=== PATIENT | male | born 1960 | race Caucasian/White ===

== ENCOUNTER 2017-04-27 10:05 | Inpatient (IN) | payer BC, OTHER ==
[~2017-04-27] VITALS: Ht 177.8 cm; Wt 124.7 kg
[2017-04-27] MEDS ORDERED: ACETAMINOPHEN 325 MG TABLET PO PRN (12:30)
[2017-04-27] MEDS ORDERED: hydrALAZINE HCL 50 MG TABLET PO PRN (12:30)
[2017-04-27] MEDS ORDERED: LORAZEPAM 2 MG/1 ML VIAL IM PRN (12:30)
[2017-04-27] MEDS ORDERED: IBUPROFEN 600 MG TABLET PO PRN (12:30)
[2017-04-27] MEDS ORDERED: THIAMINE HCL 200 MG/2 ML VIAL IM ONE (12:30)
[2017-04-27] MEDS ORDERED: ONDANSETRON 4 MG/2 ML VIAL IM PRN (12:30)
[2017-04-27] MEDS ORDERED: LOPERAMIDE HCL 2 MG CAPSULE PO PRN ×2 (12:30)
[2017-04-27] MEDS ORDERED: LORAZEPAM 1 MG TABLET PO PRN ×2 (12:30)
[2017-04-27] MEDS ORDERED: ONDANSETRON ODT 4 MG TAB.RAPDIS SL PRN (12:30)
[2017-04-27] MEDS ORDERED: diphenhydrAMINE 50 MG CAPSULE PO PRN (12:30)
[2017-04-27] MEDS ORDERED: MAG HYDROX/AL HYDROX/SIMETH 30 ML LIQUID UDC PO PRN (12:30)
[2017-04-27] MEDS ORDERED: MIRALAX 17 GM POWD.PACK PO PRN (12:30)
[2017-04-27 13:05] LABS: BASOPHILS # (AUTO) 0.1 K/uL (0.0-8.0); BASOPHILS % (AUTO) 0.6 % (0.0-2.0); EOSINOPHILS % (AUTO) 0.4 % (0.0-7.0); HEMATOCRIT 53.1 % (40-50); HEMOGLOBIN 17.8 G/DL (14.0-18.0); LYMPHOCYTES # (AUTO) 2.6 K/UL (0.8-4.8); LYMPHOCYTES % (AUTO) 30.5 % (20.5-51.5); MEAN CORPUSCULAR HEMOGLOBIN 33.2 UUG (27.0-31.0); MEAN CORPUSCULAR HGB CONC 33 g/dL (32.0-37.0); MEAN CORPUSCULAR VOLUME 99.2 FL (82.0-92.0); MONOCYTES # (AUTO) 0.6 K/UL (0.1-1.30); MONOCYTES % (AUTO) 7.1 % (0.0-11.0); NEUTROPHILS # (AUTO) 5.3 K/UL (1.8-8.9); NEUTROPHILS % (AUTO) 61.4 % (38.5-71.5); PLATELET COUNT (AUTO) 195 K/UL (150-450); RED BLOOD CELL COUNT(AUTO) 5.36 MIL/UL (4.7-6.1); WHITE BLOOD COUNT (AUTO) 8.6 K/UL (4.0-11.2)
[2017-04-27 13:15] LABS: ALANINE AMINOTRANSFERASE 45 U/L (16-63); ALKALINE PHOSPHATASE 112 U/L (50-136); AMYLASE 39 U/L (25-115); ASPARTATE AMINOTRANSFERASE 39 U/L (15-37); BILIRUBIN,TOTAL 0.6 mg/dL (0.2-1.0); CARBON DIOXIDE 28 mmol/L (21-32); CHLORIDE 102 mmol/L (98-107); CREATININE 0.9 mg/dL (0.6-1.3); GLUCOSE 152 mg/dL (74-106); MAGNESIUM 1.7 mg/dL (1.8-2.4); POTASSIUM 3.8 mmol/L (3.5-5.1); TOTAL PROTEIN, SERUM 8.8 g/dL (6.4-8.2); UREA NITROGEN, BLOOD 7 mg/dL (7-18)
[2017-04-27] MEDS ORDERED: ATEN50TA PO (13:18)
[2017-04-27 13:27] LABS: ETHANOL < 3 MG/DL (0-0)
--- NOTE | 2017-04-27 13:30 | NUR ---
Admission Note VS: BP: 153/76 HR: 99, SpO2: 97% RA, RR: 16, Temp: 97.6 Pain:0 Height:5'10" Weight: 275LB Allergies: NKA Pt is a 57 y/o male admitted to [facility] on 04/27/17 at 1330. Pt has been admitted for alcohol dependence under the care of Dr Taylor. Pt denies suicidal and homicidal ideations at this time. Pt denies Chest Pain and SOB. Pt brought Atenolol 50mg with him. Pt reports taking it nightly for HTN. PT reports living at home with his and kids. Upon assessment pt' presents with intact skin integrity. PT denies history of falls. CIWA 1 upon admission for mild anxiety. A/Ox4 and able to answer questions necessary for the admission process. Pt denies previous hospitalizations in the last 3 months. Reports being hospitalized this year for insect bites. Pt does not have a PCP. Full Code. VS WNL, Regular Diet. Pt reports his brother being an alcoholic. Pt denies hx of seizures. Pt denies any history of suicide attempts. Breathing is even and unlabored, SpO2 is 97% on RA. Pt ambulates with steady gait. Pt reports regular daily BM. LBM on 04/27/17. Pt reports that he doesn't smoke. 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 Dr. Taylor has been notified, pt has been placed on a 5 day Ativan taper set to begin at 1500, 04/27/17. Urine has been collected for UDS and Blood draw has been completed. All needs have been met. Pt has been oriented to the room and the unit. All safety measures in place per hospital policy. Bed in lowest position, side rails up x2 and padded, call-light within reach. Will continue to monitor. Substance Abuse: Alcohol: 300-500ml orally daily for 10months. Last Drink: 500ml on 04/26/17 evening
[2017-04-27 13:43] LABS: *AMPHETAMINE, URINE NEGATIVE (NEGATIVE); *BARBITURATE, URINE NEGATIVE (NEGATIVE); *CANNABINOID, URINE NEGATIVE (NEGATIVE); *COCCAINE, URINE NEGATIVE (NEGATIVE); *OPIATE, URINE NEGATIVE (NEGATIVE); *PHENCYCLIDINE SCREEN,URINE NEGATIVE (NEGATIVE)
[2017-04-27] MEDS: LORAZEPAM 1 MG TABLET PO SCH ×2 (15:00→21:00)
--- NOTE | 2017-04-27 15:00 | NUR ---
Therapist prompted client about group times. Client stated he will start attending groups this afternoon.
--- NOTE | 2017-04-27 15:14 | NUR ---
Medication Refused Pt is refusing Ativan 2mg, educated pt on dangers of withdrawal caused S/E and seizures. Addendum: 04/27/17 at 1628 by LUZ MARIA ORTEGA RN Pt states, "I'm not withdrawing right now, I will take the 2100 dose". Pt presents with RUFINO 1 at this time.
[2017-04-27 16:00] VITALS: BP 138/69
--- NOTE | 2017-04-27 19:27 | NUR ---
End of Shift Endorsement given to nightshift nurse. Pt is a 57 y/o male admitted to [facility] on 04/27/17 at 1330. Pt has been admitted for alcohol dependence under the care of Dr Taylor. Pt denies suicidal and homicidal ideations at this time. Pt denies Chest Pain and SOB. Pt brought Atenolol 50mg with him. Pt reports taking it nightly for HTN. PT reports living at home with his and kids. Upon assessment pt' presents with intact skin integrity. PT denies history of falls. CIWA 1 upon admission for mild anxiety. A/Ox4 and able to answer questions necessary for the admission process. Pt denies previous hospitalizations in the last 3 months. Reports being hospitalized this year for insect bites. Pt does not have a PCP. Full Code. VS WNL, Regular Diet. Pt reports his brother being an alcoholic. Pt denies hx of seizures. Pt denies any history of suicide attempts. Breathing is even and unlabored, SpO2 is 97% on RA. Pt ambulates with steady gait. Pt reports regular daily BM. LBM on 04/27/17. Pt reports that he doesn't smoke. 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 Dr. Taylor has been notified, pt has been placed on a 5 day Ativan taper set to begin at 1500, 04/27/17. Urine has been collected for UDS and Blood draw has been completed. All needs have been met. Pt has been oriented to the room and the unit. All safety measures in place per hospital policy. Bed in lowest position, side rails up x2 and padded, call-light within reach. Will continue to monitor. Substance Abuse: Alcohol: 300-500ml orally daily for 10months. Last Drink: 500ml on 04/26/17 evening
--- NOTE | 2017-04-27 19:28 | NUR ---
Start of shift note Received report from day shift nurse. Pt is 57 yo male, A+Ox4, presenting to [facility] for ETOH dependence. Pt has Allergies to ibuprofen, is on Full code status, and on Regular diet. Pt is on Fall and Seizure precautions. Pt has HX of HTN. Pt is on 5 day Ativan taper, tolerated well. No s/s of distress noted at this time. Respirations even and unlabored. Will continue to monitor.
[2017-04-27 20:03] VITALS: BP 154/83
[2017-04-27] MEDS ORDERED: MAGNESIUM OXIDE 400 MG TABLET PO ONE (21:00)
--- NOTE | 2017-04-27 22:50 | NUR ---
PRN Benadryl Pt c/o inability to sleep and requested for PRN Benadryl. Medication given and tolerated well. Will reassess within 1 HR. Will continue to monitor.
--- NOTE | 2017-04-27 23:45 | NUR ---
PRN Benadryl Reassessment Medication effective. Pt is resting well in bed. No s/s of ASE/distress noted at this time. Respirations even and unlabored. Will continue to monitor.
[2017-04-28] MEDS ORDERED: ATENOLOL 50 MG TABLET PO ONE
[2017-04-28] MEDS ORDERED: ATENOLOL 50 MG TABLET ONE (00:10)
[2017-04-28 00:15] VITALS: BP 116/68
[2017-04-28 04:13] VITALS: BP 119/71
--- NOTE | 2017-04-28 07:00 | NUR ---
End of shift note Pt is 57 yo male, A+Ox4, presenting to [facility] for ETOH dependence. Pt has Allergies to ibuprofen, is on Full code status, and on Regular diet. Pt is on Fall and Seizure precautions. Pt has HX of HTN. Pt is on 5 day Ativan taper, tolerated well. Pt was given PRN Benadryl @2250. Pt slept for a total of 7 HRS. Last CIWA: 2 @0400. No s/s of distress noted at this time. Respirations even and unlabored. Will endorse to day shift nurse.
--- NOTE | 2017-04-28 07:45 | NUR ---
START OF SHIFT NOTE Received report from night nurse, 57 year old male admitted for ETOH dependence. Patient has PMH of HTN, sleep apnea. Patient cont on 5 days Ativan taper. Per endorsement pt was given PRN Benadryl effective per night nurse. Patient slept for 7 hours, Last CIWA was-2. Patient received awake,alert and oriented x4, Educated patient regarding plan of care for the day and medication regimen with good verbal understanding. Safety measures in place. call light with in reach, will continue to monitor.
[2017-04-28 08:00] VITALS: BP 123/77
[2017-04-28 08:07] LABS: HEPATITIS B SURFACE AG Negative (Negative)
[2017-04-28] MEDS: FOLIC ACID 1 MG TABLET PO SCH (08:40)
[2017-04-28] MEDS: MULTIVITAMINS,THERAPEUTIC TABLET PO SCH (08:40)
[2017-04-28] MEDS: THIAMINE HCL 100 MG TABLET PO SCH (08:40)
--- NOTE | 2017-04-28 08:43 | NUR ---
ATIVAN REFUSED Patient refused his scheduled Ativan 1mg Po offered x3 risk and benefits explained pt verbalized understanding still refused, CIWA score noted 4. notified. All safety measures in place. Will cont to monitor.
[2017-04-28] MEDS ORDERED: TUBERCULIN,PURIF.PROT.DERIV. 5 TU/0.1 ML TEST ID ONE (09:00)
[2017-04-28] MEDS ORDERED: ATENOLOL 50 MG TABLET PO SCH (09:00)
[2017-04-28] MEDS ORDERED: LORAZEPAM 1 MG TABLET PO SCH ×2 (09:00→21:00)
[2017-04-28 12:00] VITALS: BP 157/85
[2017-04-28] MEDS ORDERED: LORAZEPAM 1 MG TABLET PO PRN ×2 (12:45)
[2017-04-28] MEDS: LORAZEPAM 1 MG TABLET PO SCH ×2 (15:08→21:00)
[2017-04-28 16:00] VITALS: BP 152/80
--- NOTE | 2017-04-28 19:14 | NUR ---
END OF SHIFT NOTE Patient is admitted for ETOH dependence. Patient cont on Ativan taper tolerating well. Patient refused his scheduled Ativan offered x3 risk and benefits explained MD aware. Encouraged Po fluids as tolerated. Pt's last CIWA score was 7 at 1600. Vital signs WNL. Patient attended groups and activities. Skin intact warm and dry to touch. All needs met. Safety measures in place, call light within reach. Pt endorsed to night nurse in stable condition.
--- NOTE | 2017-04-28 19:15 | NUR ---
Start of shift note Received report from day shift nurse. Pt is 57 yo male, A+Ox4, presenting to [facility] for ETOH dependence. Pt has Allergies to ibuprofen, is on Full code status, and on Regular diet. Pt is on Fall and Seizure precautions. Pt has HX of HTN. Pt is on 5 day Ativan taper, tolerated well. No s/s of distress noted at this time. Respirations even and unlabored. Will continue to monitor.
[2017-04-28 20:15] VITALS: BP 134/85
[2017-04-28] MEDS: ATENOLOL 50 MG TABLET PO SCH (21:00)
[2017-04-29 00:20] VITALS: BP 127/82
[2017-04-29 04:11] VITALS: BP 124/79
--- NOTE | 2017-04-29 06:58 | NUR ---
End of shift note Pt is 57 yo male, A+Ox4, presenting to [facility] for ETOH dependence. Pt has Allergies to ibuprofen, is on Full code status, and on Regular diet. Pt is on Fall and Seizure precautions. Pt has HX of HTN. Pt is on 5 day Ativan taper, tolerated well. Pt slept for a total of 9 HRS. Last CIWA: 3 @0400. No s/s of distress noted at this time. Respirations even and unlabored. Will endorse to day shift nurse.
--- NOTE | 2017-04-29 07:45 | NUR ---
START OF SHIFT Rcvd endorsement from ongoing nurse, client is in room, he is a/o x 4, he presents with anxious mood, flat affect, and flushed face. He reports decreased in appetite, abdominal cramps, restless legs, irritability, and fatigue. He denies any N/V/D. He denies any SI/HI. Encourage client to attend to group therapy for skill to maintain sober. Encourage client to increase PO fluid intake as tolerated to facilitate detox. Client is a 57 y/o male, admitted to [facility] for withdrawal from alcohol. He is on last of 5 day Ativan taper, tolerating well (day 3). Last CIWA 3 @ 1999. Client had an uneventful night, he slept 8 hrs. He denies a hx of withdrawal-induced seizures, Client reports allergy to Ibuprofen , he is full code, regular diet. Side rails x 2 up/padded for seizure precautions. Call light within reach.
[2017-04-29 08:00] VITALS: BP 150/80
[2017-04-29] MEDS: MULTIVITAMINS,THERAPEUTIC TABLET PO SCH (08:37)
[2017-04-29] MEDS: FOLIC ACID 1 MG TABLET PO SCH (08:37)
[2017-04-29] MEDS: THIAMINE HCL 100 MG TABLET PO SCH (08:37)
[2017-04-29] MEDS: LORAZEPAM 1 MG TABLET PO SCH ×2 (08:38→21:00)
[2017-04-29] MEDS ORDERED: LORAZEPAM 1 MG TABLET PO SCH (09:00)
--- NOTE | 2017-04-29 09:48 | NUR ---
Therapist prompted client about group times. Client stated he will attend all groups today.
[2017-04-29 12:23] VITALS: BP 144/77
[2017-04-29 16:47] VITALS: BP 145/73
--- NOTE | 2017-04-29 19:13 | NUR ---
END OF SHIFT Client is a 57 y/o male, a/o x 4, he was admitted to [facility] for withdrawal from alcohol. He is on 5 day Ativan taper, tolerating well (day 3). Last CIWA 7 @ 1600. Client continues to present with anxious mood, flat affect. He is compliant with group therapy. Client consumes 75% of meals, adequate PO fluid intake 3060mL, void x 5, stool x 2. He denies a hx of withdrawal-induced seizures, Client reports allergy to Ibuprofen , he is full code, regular diet. Side rails x 2 up/padded for seizure precautions. Call light within reach.
[2017-04-29 20:00] VITALS: BP 142/80
--- NOTE | 2017-04-29 20:00 | NUR ---
Start of Shift Patient is a 57-year old, male, admitted for ETOH Dependence. Patient placed on Ativan taper, last dose 04/29/2017 AM. Pt with history of Hypertension and Sleep Apnea, with personal CPAP at bedside. Pt on Regular Diet, is Full Code and is allergic to Ibuprofen. Pt is AAOx4 and with mild anxiety noted. Pt is ambulatory with steady gait and with no skin issues. Fall, universal and safety prec in place. Call light within reach. Latest CIWA=6. Will continue to monitor.
[2017-04-29] MEDS: ATENOLOL 50 MG TABLET PO SCH (21:43)
--- NOTE | 2017-04-29 21:45 | NUR ---
RN note Ativan taper refusal Pt refused Ativan scheduled for tonight. Educated pt the risks and benefits of continuing the taper. Dr. Taylor notified. No new orders.
[2017-04-30] VITALS: BP 135/83
--- NOTE | 2017-04-30 04:10 | NUR ---
RN note Vital Signs and CIWA assessment refusal Pt refused Vital Signs check and CIWA assessment despite explanation of risks and benefits. RR=16. No SOB noted.
--- NOTE | 2017-04-30 07:06 | NUR ---
End of Shift Patient is a 57-year old, male, admitted for ETOH Dependence. Patient placed on Ativan taper, last dose 04/29/2017 AM. Pt with history of Hypertension and Sleep Apnea, with personal CPAP at bedside. Pt on Regular Diet, is Full Code and is allergic to Ibuprofen. Pt is AAOx4 and with mild anxiety noted. Pt is ambulatory with steady gait and with no skin issues. Fall, universal and safety prec in place. Call light within reach. Latest CIWA=3, slept for 8 hours. Endorsed to AM shift nurse for continuity of care.
--- NOTE | 2017-04-30 07:45 | NUR ---
START OF SHIFT Rcvd endorsement from ongoing nurse, client is in room, he is a/o x 4, he presents with depressed mood. He reports restless legs and fatigue. He denies any N/V/D. He denies any SI/HI. Encourage client to attend to group therapy for skill to maintain sober. Encourage client to increase PO fluid intake as tolerated to facilitate detox. Client is a 57 y/o male, admitted to [facility] for withdrawal from alcohol. He is on last of 5 day Ativan taper, tolerating well (day 4). Last CIWA 3 @ 2400. Client refused Ativan 1mg PO taper, he slept 8 hrs. He denies a hx of withdrawal-induced seizures, Client reports allergy to Ibuprofen , he is full code, regular diet. Side rails x 2 up/padded for seizure precautions. Call light within reach.
[2017-04-30 08:03] VITALS: BP 144/79
[2017-04-30] MEDS: FOLIC ACID 1 MG TABLET PO SCH (08:18)
[2017-04-30] MEDS: THIAMINE HCL 100 MG TABLET PO SCH (08:18)
[2017-04-30] MEDS: MULTIVITAMINS,THERAPEUTIC TABLET PO SCH (08:18)
--- NOTE | 2017-04-30 08:41 | NUR ---
Zero induration noted on left forearm @ TB site
[2017-04-30] MEDS ORDERED: LORAZEPAM 1 MG TABLET PO SCH ×2 (09:00)
[2017-04-30 12:25] VITALS: BP 147/87
--- NOTE | 2017-04-30 12:40 | NUR ---
AMA Client stated the he was not ready and wanted to go home. Client was educated about the risks and consequences of leaving AMA, client verbalized understanding but still requested to leave. multiple staff members spoke with client without any success. VS are WNL, client denies any suicidal/homicidal ideations, skin intact, Dr. Taylor notified. Client was given a list of community resources in case he is in need of help, all belongings and medication returned to client. Client ambulated out of the unit at 1240
[2017-05-01] MEDS ORDERED: LORAZEPAM 1 MG TABLET PO SCH (09:00)
== END 2017-04-30 12:40 | disposition left against medical advice (07) | DRG 894 ==
LOC: SRC 11:46
PROVIDERS: ADMIT Internal Medicine; ATTEND Internal Medicine
PROC: HZ2ZZZZ Detoxification Services for Substance Abuse Treatment (ICD-10-PCS; principal; 2017-04-27)
PROC: HZ41ZZZ Group Counseling for Substance Abuse Treatment, Behavioral (ICD-10-PCS; principal; 2017-04-27)
PROC: HZ31ZZZ Individual Counseling for Substance Abuse Treatment, Behavioral (ICD-10-PCS; 2017-04-29)
DX: F10.230 Alcohol dependence with withdrawal, uncomplicated (principal); E88.81 Metabolic syndrome and other insulin resistance; K70.10 Alcoholic hepatitis without ascites; E83.42 Hypomagnesemia; E66.9 Obesity, unspecified; I10 Essential (primary) hypertension; Y90.0 Blood alcohol level of less than 20 mg/100 ml; Z81.1 Family history of alcohol abuse and dependence; Z80.0 Family history of malignant neoplasm of digestive organs; Z82.49 Family history of ischemic heart disease and other diseases of the circulatory system; Z68.39 Body mass index [BMI] 39.0-39.9, adult; E78.5 Hyperlipidemia, unspecified; G47.33 Obstructive sleep apnea (adult) (pediatric); F41.9 Anxiety disorder, unspecified
CPT/HCPCS: 36415; 70030-TC; 80307; 83735; 85025; 86580; 86592; 86705; 86803; 87340; 87806; A4663; G0480; J3411; Q0163

== ENCOUNTER 2018-07-13 15:42 | Inpatient (IN) | payer BC, OTHER ==
[~2018-07-13] VITALS: Ht 177.8 cm; Wt 117.9 kg
[~2018-07-13 15:42] MED LIST: ATEN50TA PO
[2018-07-13 20:00] VITALS: BP 151/87
[2018-07-13] MEDS ORDERED: LORAZEPAM 2 MG/1 ML VIAL IM PRN (20:45)
[2018-07-13] MEDS ORDERED: MAGNESIUM HYDROXIDE 30 ML LIQUID UDC PO PRN (20:45)
[2018-07-13] MEDS ORDERED: MIRALAX 17 GM POWD.PACK PO PRN (20:45)
[2018-07-13] MEDS ORDERED: DIAZEPAM 10 MG TABLET PO PRN ×2 (20:45)
[2018-07-13] MEDS ORDERED: DIAZEPAM 5 MG TABLET PO PRN (20:45)
[2018-07-13] MEDS ORDERED: ONDANSETRON ODT 4 MG TAB.RAPDIS SL PRN (20:45)
[2018-07-13] MEDS ORDERED: THIAMINE HCL 200 MG/2 ML VIAL IM ONE (20:45)
[2018-07-13] MEDS ORDERED: CLONIDINE HCL 0.1 MG TABLET PO PRN (20:45)
[2018-07-13] MEDS ORDERED: FOLIC ACID 1 MG TABLET PO SCH (20:45)
[2018-07-13] MEDS ORDERED: diphenhydrAMINE 50 MG CAPSULE PO PRN (20:45)
[2018-07-13] MEDS ORDERED: HYDROXYZINE PAMOATE 25 MG CAPSULE PO PRN (20:45)
[2018-07-13] MEDS ORDERED: MULTIVITAMINS,THERAPEUTIC TABLET PO SCH (20:45)
[2018-07-13] MEDS ORDERED: ACETAMINOPHEN 325 MG TABLET PO PRN (20:45)
[2018-07-13] MEDS ORDERED: IBUPROFEN 600 MG TABLET PO PRN (20:45)
[2018-07-13] MEDS ORDERED: LOPERAMIDE HCL 2 MG CAPSULE PO PRN ×2 (20:45)
[2018-07-13] MEDS ORDERED: MAG HYDROX/AL HYDROX/SIMETH 30 ML LIQUID UDC PO PRN (20:45)
[2018-07-13] MEDS ORDERED: THIAMINE HCL 100 MG TABLET PO SCH (20:45)
[2018-07-13] MEDS ORDERED: ONDANSETRON 4 MG/2 ML VIAL IM PRN (20:45)
[2018-07-13 21:07] LABS: *AMPHETAMINE, URINE NEGATIVE (NEGATIVE); *BARBITURATE, URINE NEGATIVE (NEGATIVE); *CANNABINOID, URINE NEGATIVE (NEGATIVE); *COCCAINE, URINE NEGATIVE (NEGATIVE); *OPIATE, URINE NEGATIVE (NEGATIVE); *PHENCYCLIDINE SCREEN,URINE NEGATIVE (NEGATIVE)
[2018-07-13 21:30] VITALS: BP 155/83
[2018-07-13 22:41] LABS: BASOPHILS # (AUTO) 0.1 K/uL (0.0-8.0); BASOPHILS % (AUTO) 0.9 % (0.0-2.0); EOSINOPHILS % (AUTO) 0.4 % (0.0-7.0); HEMOGLOBIN 17.3 g/dL (12.5-16.3); LYMPHOCYTES # (AUTO) 2.3 K/uL (20.0-40.0); MEAN CORPUSCULAR HEMOGLOBIN 35.3 uug (23.8-33.4); MEAN CORPUSCULAR HGB CONC 35 g/dL (32.5-36.3); MEAN CORPUSCULAR VOLUME 102.3 fL (73.0-96.2); MONOCYTES # (AUTO) 0.9 K/uL (2.0-10.0); MONOCYTES % (AUTO) 11.2 % (0.0-11.0); NEUTROPHILS # (AUTO) 4.6 K/uL (1.8-8.9); NEUTROPHILS % (AUTO) 58.5 % (38.5-71.5); PLATELET COUNT (AUTO) 169 K/uL (152-348); RED BLOOD CELL COUNT(AUTO) 4.89 MIL/uL (4.06-5.63); WHITE BLOOD COUNT (AUTO) 7.9 K/uL (3.6-10.2)
[2018-07-13 22:58] LABS: ALANINE AMINOTRANSFERASE 37 U/L (16-63); ALKALINE PHOSPHATASE 103 U/L (50-136); AMYLASE 34 U/L (25-115); ASPARTATE AMINOTRANSFERASE 28 U/L (15-37); BILIRUBIN,TOTAL 0.7 mg/dL (0.2-1.0); CARBON DIOXIDE 28 mmol/L (21-32); CHLORIDE 100 mmol/L (98-107); CREATININE 0.8 mg/dL (0.6-1.3); GLUCOSE 151 mg/dL (74-106); LIPASE 72 U/L (73-393); MAGNESIUM 1.7 mg/dL (1.8-2.4); POTASSIUM 3.5 mmol/L (3.5-5.1); TOTAL PROTEIN, SERUM 8.4 g/dL (6.4-8.2); UREA NITROGEN, BLOOD 6 mg/dL (7-18)
[2018-07-13 23:06] LABS: THYROID STIMULATING HORMONE 3.177 mIU/mL (0.358-3.740)
[2018-07-13 23:27] LABS: ETHANOL < 3 MG/DL (0-0)
[2018-07-14] MEDS ORDERED: 5 DAY TAPER VALIUM-SERENITY PROTOCOL PO PRN (09:00)
[2018-07-14] MEDS ORDERED: TUBERCULIN,PURIF.PROT.DERIV. 5 TU/0.1 ML TEST ID ONE (09:00)
[2018-07-15 05:05] LABS: HEPATITIS B SURFACE AG Negative (Negative)
== END 2018-07-13 22:56 | disposition left against medical advice (07) | DRG 894 ==
LOC: SRC 19:30
PROVIDERS: ADMIT Family Medicine Addiction Medicine; ATTEND Family Medicine Addiction Medicine
DX: F10.239 Alcohol dependence with withdrawal, unspecified (principal); Z75.3 Unavailability and inaccessibility of health-care facilities
CPT/HCPCS: 36415; 80307; 83690; 83735; 84443; 85025; 86592; 86705; 86803; 87340; 87806; 94660; G0480